=== PATIENT | male | born 1990 | race African-American/Black ===

== ENCOUNTER 2018-01-01 07:29 | Emergency (ER) | payer SELFPAY ==
[~2018-01-01] VITALS: Ht 195.6 cm; Wt 88.7 kg
[~2018-01-01 07:29] MED LIST: NO MEDS
[2018-01-01 09:51] VITALS: BP 152/75
== END 2018-01-01 09:51 | disposition home or self-care (01) ==
LOC: EME 07:29
PROC: 0HQDXZZ Repair Right Lower Arm Skin, External Approach (ICD-10-PCS; principal; 2018-01-01)
PROC: 0HQFXZZ Repair Right Hand Skin, External Approach (ICD-10-PCS; principal; 2018-01-01)
DX: S61.511A Laceration without foreign body of right wrist, initial encounter (principal); S61.210A Laceration without foreign body of right index finger without damage to nail, initial encounter; S60.221A Contusion of right hand, initial encounter; W22.8XXA Striking against or struck by other objects, initial encounter; W25.XXXA Contact with sharp glass, initial encounter; F17.200 Nicotine dependence, unspecified, uncomplicated
CPT/HCPCS: 73110; 73130; 99281; 99284; S0020